=== PATIENT | female | born 2000 | race Caucasian/White ===

== ENCOUNTER → 2023-01-15 10:45 | Outpatient (BNVA) | payer BC, OTHER, SELFPAY | PROVIDERS: Visit Provider Family Medicine | DX: R53.83 Other fatigue (principal) | CPT/HCPCS: 80053; 82306; 82607; 83036; 83540; 84443 ==

== ENCOUNTER → 2023-05-05 16:47 | Outpatient (BNVA) | payer BC, OTHER, SELFPAY | PROVIDERS: Visit Provider Nurse Practitioner Family | DX: N39.0 Urinary tract infection, site not specified (principal); R39.9 Unspecified symptoms and signs involving the genitourinary system | CPT/HCPCS: 81000 ==